=== PATIENT | male | born 1975 | race Two or more races ===

== ENCOUNTER 2025-02-22 14:49 | Emergency (ER) | payer MEDICAID, OTHER ==
[~2025-02-22] VITALS: Ht 180.3 cm; Wt 115.8 kg
--- NOTE | 2025-02-22 16:19 | ED.PDOC ---
History of Present Illness(SKN HPI Comments A 50 YEAR OLD MALE PRESENTS TO THE ED WITH COMPLAINT OF RASH. PATIENT STATES HE HAS BEEN EXPERIENCING AN ITCHY RASH OFF AND ON FOR THE PAST 4 DAYS. THE PATIENT NOTES THAT HE TAKES 5 DIFFERENT MEDICATIONS, BUT IS NOT SURE IF THIS IS WHAT MAY BE CAUSING HIS SYMPTOMS. PATIENT DENIES FEVER, CHILLS, SHORTNESS OF BREATH, CHEST PAIN, ABDOMINAL PAIN, NAUSEA, VOMITING, HEADACHE, OR OTHER COMPLAINTS. NO OTHER SYMPTOMS OR MODIFYING FACTORS AT THIS TIME. PATIENT IS ALERT, ORIENTED X 4, AND HAS STEADY GAIT. Chief Complaint: Rash Time Seen by MD: 14:55 History of Present Illness: Nurses Notes, Medications, Allergies Allergies: Coded Allergies: NO KNOWN ALLERGIES (Unverified , 02/22/25) Home Meds Active Scripts Prednisone (Prednisone) 20 Mg Tab, 60 MG PO DAILY, #24 TAB Prov:FATUMA ANDRE 02/22/25 Hydroxyzine Hcl (Hydroxyzine Hcl) 50 Mg Tab, 1 TAB PO TID, #30 TAB Prov:FATUMA ANDRE 02/22/25 Information Source: Patient Mode of Arrival: Ambulatory Severity: Moderate Timing: Days Duration: Since onset, Days Prehospital treatment: None Location: Generalized Mechanism: Spontaneous Onset Developed: Pruritus, Rash Occurence: Indoors Object: None Condition of Object: None Wound Type: None Immunization Status of Animal: NA Tetanus: Unknown History of: None Associated Signs and Symptoms: Redness Past Medical History PAST MEDICAL HISTORY: GERD Surgical History: Denies all surgeries Family History Family History: Reviewed,noncontributory to illness Social History Smoker: Non-Smoker Alcohol: Denies ETOH Use Drugs: Denies Drug Use Lives In: Home Constitutional: denies: chills, diaphoresis, fatigue, fever, malaise, sweats, weakness, others EENTM: denies: blurred vision, double vision, ear bleeding, ear discharge, ear drainage, ear pain, ear ringing, eye pain, eye redness, hearing loss, mouth pain, mouth swelling, nasal discharge, nose bleeding, nose congestion, nose pain, photophobia, tearing, throat pain, throat swelling, voice changes, others Respiratory: denies: cough, hemoptysis, orthopnea, SOB at rest, shortness of breath, SOB with excertion, stridor, wheezing, others Cardiovascular: denies: chest pain, dizzy spells, diaphoresis, Dyspnea on exertion, edema, irregular heart beat, left arm pain, lightheadedness, palpitations, PND, syncope, others Gastrointestinal: denies: abdomen distended, abdominal pain, blood streaked bowels, constipated, diarrhea, dysphagia, difficulty swallowing, hematemesis, melena, nausea, poor appetite, poor fluid intake, rectal bleeding, rectal pain, vomiting, others Genitourinary: denies: burning, dysuria, flank pain, frequency, hematuria, incontinence, penile discharge, penile sore, pain, testicle pain, testicle s welling, urgency, others Neurological: denies: dizziness, fainting, headache, left sided numbness, left sided weakness, numbness, paresthesia, pre-existing deficit, right sided numbness, right sided weakness, seizure, speech problems, tingling, tremors, weakness, others Musculoskeletal: denies: back pain, gout, joint pain, joint swelling, muscle pain, muscle stiffness, neck pain, others Integumetry: reports: rash (GENERALIZED RASH WITH ITCHING); denies: bruises, change in color, change in hair/nails, dryness, laceration, lesions, lumps, wounds, others Allergic/Immunocompromised: reports: Hives, Itching; denies: Difficulty Healing, Frequent Infections, others Hematologic/Lymphatic: denies: anemia, blood clots, easy bleeding, easy bruising, swollen glands, others Endocrine: denies: excessive hunger, excessive sweating, excessive thirst, excessive urination, flushing, intolerance to cold, intolerance to heat, unexplained weight gain, unexplained weight loss, others Psychiatric: denies: anxiety, bipolar disorder, depression, hopeless, panic disorder, schizophrenia, sleepless, suicidal, others All Other Systems: Reviewed and Negative Physical Exam General Appearance: No Apparent Distress, Obese HEENT: Normal ENT Inspection, PERRL/EOMI, Pharynx Normal, TMs Normal Neck: Full Range of Motion, Non-Tender, Normal, Normal Inspection Respiratory: Chest Non-Tender, Lungs Clear, No Accessory Muscle Use, No Respiratory Distress, Normal Breath Sounds Cardiovascular: No Edema, No JVD, No Murmur, No Gallop, Normal Peripheral Pulses, Regular Rate/Rhythm Breast Exam: Deferred Gastrointestinal: No Organomegaly, Non Tender, No Pulsatile Mass, Normal Bowel Sounds, Soft Genitalia: Deferred Pelvic: Deferred Rectal: Deferred Extremities: No calf tenderness, Normal capillary refill, Normal inspection, Normal range of motion, Non-tender, No pedal edema Musculoskeletal : Apperance: Normal Neurologic: Alert, shoe cobbler II-XII nml as Tested, No Motor Deficits, Normal Affect, Normal Mood, No Sensory Deficits Cerebellar Function: Normal Reflexes: Normal Skin: Dry, Rash (MILD ERYTHEMA SANDS SKIN RASH ON UPPER BACK, LOWER BACK, ARMS AND THIGHS, NO TENDERNESS, SWELLING AND DEFORMITY. ), Warm Peripheral Pulses: 2+ carotid (R), 2+ carotid (L) Lymphatic: No Adenopathy Was a procedure done? Was a procedure done?: No Differential Diagnosis (INTG) Differential Diagnosis: N/A Differential Diagnosis: Atopic dermatitis, Contact Dermatitis, Scabies, Tinea, Urticaria Differential Diagnosis: N/A Abscess: N/A Differential Diagnosis: N/A X-Ray, Labs, Meds, VS Vital Signs Date Time Temp Pulse Resp B/P (MAP) Pulse Ox O2 Delivery O2 Flow Rate FiO2 02/22/25 16:27 88 19 98 Room Air 02/22/25 16:27 98.4 88 19 132/87 (102) 98 98.4 02/22/25 14:51 98.4 88 19 132/87 98 98.4 X-Ray, Labs, Meds, VS Comment EXTERNAL MEDICAL RECORDS REVIEWED: [NONE] INDEPENDENT HISTORIANS: [NONE] SOCIAL DETERMINANTS OF HEALTH: [NONE] LABS ORDERED: NONE REVIEWED AND INTERPRETED RESULTS: NONE IMAGING ORDERED: NONE TREATMENTS ORDERED: NONE PROCEDURES PERFORMED: NONE CRITICAL CARE TIME: NONE I HAVE DISCUSSED THE PATIENT WITH THE ATTENDING PHYSICIAN DR. GUDINO AND HE AGREES WITH THE PATIENT'S PLAN OF CARE AND DISPOSITION. BASED ON HISTORY OF PRESENT ILLNESS, AND PHYSICAL EXAM, PATIENT WILL BE DISCHARGED HOME. DISCUSSED PLAN FOR DISCHARGE HOME WITH RX [PREDNISONE AND VISTARIL 50 MG]. MEDICATION WARNINGS GIVEN. SHARED DECISION MAKING: PATIENT INSTRUCTED TO FOLLOW UP WITH PRIMARY CARE PROVIDER IN 1-2 DAYS FOR RE-EVALUATION OF SYMPTOMS. PATIENT VERBALIZES UNDERSTANDING TO RETURN TO ED FOR NEW OR WORSENING SYMPTOMS OR IF FOLLOW UP WITH PCP CANNOT BE OBTAINED. PATIENT FEELS COMFORTABLE GOING HOME AT THIS TIME. ALL QUESTIONS ADDRESSED AT TIME OF DISCHARGE. Time of 1ST Reevaluation: 16:31 Reevaluation 1ST: Improved Patient Education/Counseling: Diagnosis, Treatment, Need For Follow Up Family Education/Counseling: Diagnosis, Treatment, Need For Follow Up Medical Screening: No EMC Exist At This Time SEPSIS Sepsis Screen Date sepsis recognized/suspect: Feb 22, 2025 Time Sepsis recognized/suspect: 1453 Recent Procedure: No On Antibiotic Therapy: No Respiratory Rate >20: No Heart Rate >90: No Temp<36 C (96.8 F) or >38.3 C: No SBP <90 or MAP <65 mmHG: No New Acute Mental Status Change: No Is the patient on CPAP, BIPAP,: No Vital Signs Date Time Temp Pulse Resp B/P (MAP) Pulse Ox O2 Delivery O2 Flow Rate FiO2 02/22/25 16:27 88 19 98 Room Air 02/22/25 16:27 98.4 88 19 132/87 (102) 98 98.4 02/22/25 14:51 98.4 88 19 132/87 98 98.4 Departure 1 Departure Time of Disposition: 16:31 Impression: Primary Impression: Allergic reaction Qualified Codes: T78.40XA - Allergy, unspecified, initial encounter Disposition: HOME / SELF CARE / HOMELESS Condition: Stable Additional Instructions: FOLLOW-UP WITH PCP IN 1 TO 2 DAYS. TAKE MEDICATIONS PRESCRIBED. RETURN TO ED FOR ANY NEW OR WORSENING SYMPTOMS. e-Prescriptions Prednisone (Prednisone) 20 Mg Tab 60 MG PO DAILY, #24 TAB Prov: FATUMA ANDRE 02/22/25 Hydroxyzine Hcl (Hydroxyzine Hcl) 50 Mg Tab 1 TAB PO TID, #30 TAB Prov: FATUMA ANDRE 02/22/25 Discharged With: Self Critical Care Note Critical Care Time?: No Stability Stability form required: No I personally scribed for FATUMA ANDRE ([email or web address]) on 02/22/25 at 16:19. Electronically submitted by Tom Angelo ([email or web address]). I personally scribed for FATUMA ANDRE ([email or web address]) on 02/22/25 at 16:23. Electronically submitted by Tom Angelo ([email or web address]). FATUMA ANDRE Feb 22, 2025 16:19
[2025-02-22] MEDS ORDERED: PRED20TA2 PO (16:26)
[2025-02-22] MEDS ORDERED: HYDR50TA69 PO (16:26)
[2025-02-22 16:27] VITALS: BP 132/87; PULSE 88; RESP 19; TEMP 98.4; O2SAT 98
== END 2025-02-22 16:28 | disposition home or self-care (01) ==
LOC: ER 14:49
DX: T78.19XA Other adverse food reactions, not elsewhere classified, initial encounter (principal); Z79.52 Long term (current) use of systemic steroids; K21.9 Gastro-esophageal reflux disease without esophagitis; X58.XXXA Exposure to other specified factors, initial encounter
CPT/HCPCS: 82947; 82962

== ENCOUNTER 2025-02-27 10:06 | Inpatient (IN) | payer MEDICAID ==
[~2025-02-27] VITALS: Ht 180.3 cm; Wt 115.5 kg
[~2025-02-27 10:06] MED LIST: HYDR50TA69 PO; PRED20TA2 PO
--- NOTE | 2025-02-27 10:31 | ED.PDOC ---
GI ASSESSMENT HPI Comments 50 year old male presents to the ED with a chief complaint of abdominal pain onset 2 weeks. Patient states he has been experiencing abdominal pain, RUQ, for the past 2 weeks rates pain 5/10. Patient does not have PCP, went to [facility], was advised to come to ED due to complaints. For the past 2 weeks he has also been experiencing abdominal distension, jaundice, generalized itchiness, nausea. Denies fever, chills, vomiting, diarrhea, hematemesis, dysuria, hematuria, blood in stool, melena, headache. No other symptoms or modifying factors present at this time. Chief Complaint: Abdominal Pain Time Seen by MD: 10:25 Reviewed Notes: Nurses Notes, Medications, Allergies Allergies: Coded Allergies: NO KNOWN ALLERGIES (Unverified , 02/22/25) Home Meds Active Scripts Prednisone (Prednisone) 20 Mg Tab, 60 MG PO DAILY, #24 TAB Prov:FATUMA ANDRE 02/22/25 Hydroxyzine Hcl (Hydroxyzine Hcl) 50 Mg Tab, 1 TAB PO TID, #30 TAB Prov:FATUMA ANDRE 02/22/25 Information Source: Patient Mode of Arrival: Ambulatory Timing: Weeks Duration: Since onset Prehospital treatment: None Quality: Sharp Vomitus: None Severity: Moderate Recent: None Recent Hx of: None Pain Location: RUQ Modifying Factors: Nothing Associated sign and symptoms: Nausea, Abdominal Pain Past Medical History PAST MEDICAL HISTORY: GERD Surgical History: Denies all surgeries Family History Family History: Reviewed,noncontributory to illness Social History Smoker: Non-Smoker Alcohol: Denies ETOH Use Drugs: Denies Drug Use Lives In: Home Constitutional: denies: chills, diaphoresis, fatigue, fever, malaise, sweats, weakness, others EENTM: denies: blurred vision, double vision, ear bleeding, ear discharge, ear drainage, ear pain, ear ringing, eye pain, eye redness, hearing loss, mouth pain, mouth swelling, nasal discharge, nose bleeding, nose congestion, nose pain, photophobia, tearing, throat pain, throat swelling, voice changes, others Respiratory: denies: cough, hemoptysis, orthopnea, SOB at rest, shortness of breath, SOB with excertion, stridor, wheezing, others Cardiovascular: denies: chest pain, dizzy spells, diaphoresis, Dyspnea on exertion, edema, irregular heart beat, left arm pain, lightheadedness, palpitations, PND, syncope, others Gastrointestinal: reports: abdomen distended, abdominal pain, nausea; denies: blood streaked bowels, constipated, diarrhea, dysphagia, difficulty swallowing, hematemesis, melena, poor appetite, poor fluid intake, rectal bleeding, rectal pain, vomiting, others Genitourinary: denies: burning, dysuria, flank pain, frequency, hematuria, incontinence, penile discharge, penile sore, pain, testicle pain, testicle swelling, urgency, others Neurological: denies: dizziness, fainting, headache, left sided numbness, left sided weakness, numbness, paresthesia, pre-existing deficit, right sided numbness, right sided weakness, seizure, speech problems, tingling, tremors, weakness, others Musculoskeletal: denies: back pain, gout, joint pain, joint swelling, muscle pain, muscle stiffness, neck pain, others Integumetry: reports: change in color (jaundice), others (itchiness); denies: bruises, change in hair/nails, dryness, laceration, lesions, lumps, rash, wounds Allergic/Immunocompromised: denies: Difficulty Healing, Frequent Infections, Hives, Itching, others Hematologic/Lymphatic: denies: anemia, blood clots, easy bleeding, easy bruising, swollen glands, others Endocrine: denies: excessive hunger, excessive sweating, excessive thirst, excessive urination, flushing, intolerance to cold, intolerance to heat, unexplained weight gain, unexplained weight loss, others Psychiatric: denies: anxiety, bipolar disorder, depression, hopeless, panic disorder, schizophrenia, sleepless, suicidal, others All Other Systems: Reviewed and Negative Physical Exam General Appearance: Moderate Distress HEENT: Pharynx Normal, Scleral Icterus (L), Scleral Icterus (R), TMs Normal Neck: Full Range of Motion, Non-Tender, Normal, Normal Inspection Respiratory: Chest Non-Tender, Lungs Clear, No Accessory Muscle Use, No Respiratory Distress, Normal Breath Sounds Cardiovascular: No Edema, No JVD, No Murmur, No Gallop, Normal Peripheral Pulses, Regular Rate/Rhythm Breast Exam: Deferred Gastrointestinal: Diffuse, No Organomegaly, No Pulsatile Mass, Normal Bowel Sounds, Soft, Tenderness Genitalia: Deferred Pelvic: Deferred Rectal: Deferred Extremities: No calf tenderness, Normal capillary refill, Normal inspection, Normal range of motion, Non-tender, No pedal edema Musculoskeletal : Apperance: Normal Neurologic: Alert, scientific aide II-XII nml as Tested, No Motor Deficits, Normal Affect, Normal Mood, No Sensory Deficits Cerebellar Function: Normal Reflexes: Normal Skin: Dry, Jaundice, Normal Color, Warm Lymphatic: No Adenopathy Was a procedure done? Was a procedure done?: No GI differential Dx Differential Diagnosis: Gastritis/PUD, Gastroenteritis, Inflammatory BD, Pancreatitis, UTI, Electrolyte Imbalance, Food Poisoning X-Ray, Labs, Meds, VS Vital Signs Date Time Temp Pulse Resp B/P (MAP) Pulse Ox O2 Delivery O2 Flow Rate FiO2 02/27/25 12:34 97.7 73 16 131/91 (104) 98 97.7 02/27/25 10:08 98.1 76 16 135/91 100 98.1 Lab Test 02/27/25 10:59 Range/Units White Blood Count 9.1 4.4-10.8 10^3/uL Red Blood Count 5.40 4.5-5.90 10^6/uL Hemoglobin 16.2 13.5-17.5 g/dL Hematocrit 48.0 41.0-53.0 % Mean Corpuscular Volume 88.9 80.0-100.0 fL Mean Corpuscular Hemoglobin 30.0 28.0-32.0 pg Mean Corpuscular Hemoglobin Concent 33.8 32.0-36.0 g/dL Red Cell Distribution Width 14.1 11.8-14.3 % Platelet Count 225 140-450 10^3/uL Mean Platelet Volume 9.4 6.9-10.8 fL Neutrophils (%) (Auto) 68.9 37.0-80.0 % Lymphocytes (%) (Auto) 18.3 10.0-50.0 % Monocytes (%) (Auto) 7.1 0.0-12.0 % Eosinophils (%) (Auto) 5.0 0.0-7.0 % Basophils (%) (Auto) 0.7 0.0-2.0 % Neutrophils # (Auto) 6.3 1.6-8.6 10 ^3/uL Lymphocytes # (Auto) 1.7 0.4-5.4 10 ^3/uL Monocytes # (Auto) 0.6 0-1.3 10 ^3/uL Eosinophils # (Auto) 0.5 0-0.8 10 ^3/uL Basophils # (Auto) 0.1 0-0.2 10 ^3/uL Nucleated Red Blood Cells 0.1 % Prothrombin Time 10.6 9.3-11.8 sec Prothrombin Time INR 1.00 0.9-1.15 Activated Partial Thromboplast Time 27.9 24.5-34.5 SEC Sodium Level 137 136-145 mmol/L Potassium Level 3.9 3.5-5.1 mmol/L Chloride Level 100 98-107 mmol/L Carbon Dioxide Level 26 20-31 mmol/L Anion Gap 11 5-15 Blood Urea Nitrogen 11 9-23 mg/dL Creatinine 1.02 0.700-1.30 mg/dL Glomerular Filtration Rate Calc 90 >90 mL/min BUN/Creatinine Ratio 10.8 10.0-20.0 Serum Glucose 116 H 74-106 mg/dL Calcium Level 10.1 8.7-10.4 mg/dL Total Bilirubin 11.7 H 0.2-1.0 mg/dL Aspartate Amino Transferase (AST) 57 H 13-40 U/L Alanine Aminotransferase (ALT) 217 H 7-40 U/L Alkaline Phosphatase 241 H 46-116 U/L Total Protein 8.0 5.7-8.2 g/dL Albumin 4.9 H 3.2-4.8 g/dL Lipase 45 12-53 U/L IMPRESSION: Very minimal inflammatory changes surrounding a few diverticula at the ascending colon. Please correlate with any right-sided abdominal symptoms to exclude a mild acute right-sided diverticulitis. Otherwise no acute abnormality. Radiation optimization: All CT scans at this facility use at least one of these dose optimization techniques: automated exposure control mA and/or kV adjustment per patient size (includes targeted exams where dose is matched to clinical indication) or iterative reconstruction. The patient's CBC and chemistry panel are within normal limits The liver enzymes are all elevated. The total bilirubin is 11.7 The patient is being admitted at this time Images Reviewed?: Images reviewed and evaluated by me Time of 1ST Reevaluation: 10:55 Reevaluation 1ST: Unchanged Patient Education/Counseling: Diagnosis, Treatment, Prognosis Family Education/Counseling: No Family Present SEPSIS Sepsis Screen Date sepsis recognized/suspect: Feb 27, 2025 Time Sepsis recognized/suspect: 1012 Recent Procedure: No (TN) On Antibiotic Therapy: No Respiratory Rate >20: No Heart Rate >90: No Temp<36 C (96.8 F) or >38.3 C: No SBP <90 or MAP <65 mmHG: No New Acute Mental Status Change: No Is the patient on CPAP, BIPAP,: No Physician Orders Ct Ab Pel Wo Con-No Oral Or Iv (02/27/25 10:28) Heplock Iv (02/27/25 10:28) Vital Signs Date Time Temp Pulse Resp B/P (MAP) Pulse Ox O2 Delivery O2 Flow Rate FiO2 02/27/25 12:34 97.7 73 16 131/91 (104) 98 97.7 02/27/25 10:08 98.1 76 16 135/91 100 98.1 Laboratory Tests Test 02/27/25 10:59 White Blood Count 9.1 10^3/uL (4.4-10.8) Departure 1 Departure Time of Disposition: 14:22 Impression: Primary Impression: Intractable abdominal pain Additional Impressions: Hyperbilirubinemia Jaundice Disposition: ADMITTED INPATIENT Admit to: Tele Condition: Fair Critical Care Note Critical Care Time?: No Stability Stability form required: Yes Unstable for transfer: ED Physician Assesment (Clinical assesment) Heart Score Heart Score: Heart Score Response (Comments) Value History N/A 0 EKG N/A 0 Age N/A 0 Risk Factors N/A 0 Troponin N/A 0 Total 0 I personally scribed for MADHAVI GUDINO MD ([email or web address]) on 02/27/25 at 10:31. Electronically submitted by Prisca Cordon ([email or web address]). I personally scribed for MADHAVI GUDINO MD ([email or web address]) on 02/27/25 at 12:24. Electronically submitted by Prisca Cordon ([email or web address]). MADHAVI GUDINO MD Feb 27, 2025 10:31
[2025-02-27 11:17] LABS: Hematocrit 48.0 % (41.0-53.0); Hemoglobin 16.2 g/dL (13.5-17.5); Mean Corpuscular Hemoglobin 30.0 pg (28.0-32.0); Mean Corpuscular Volume 88.9 fL (80.0-100.0); Nucleated Red Blood Cells % 0.1 %
[2025-02-27 11:32] LABS: Anion Gap 11 (5-15); Blood Urea Nitrogen 11 mg/dL (9-23); Calcium 10.1 mg/dL (8.7-10.4); Carbon Dioxide 26 mmol/L (20-31); Chloride 100 mmol/L (98-107); INR 1.0 (0.9-1.15); Lipase 45 U/L (12-53); Partial Thromboplastin Time 27.9 SEC (24.5-34.5); Potassium 3.9 mmol/L (3.5-5.1); Prothrombin Time 10.6 sec (9.3-11.8); Sodium 137 mmol/L (136-145)
[2025-02-27 11:33] LABS: Alanine Aminotransferase 217 U/L (7-40); Albumin 4.9 g/dL (3.2-4.8); Alkaline Phosphatase 241 U/L (46-116); Bilirubin, Total 11.7 mg/dL (0.2-1.0); Glucose 116 mg/dL (74-106)
[2025-02-27 11:53] LABS: BUN/Creatinine Ratio 10.8 (10.0-20.0)
[2025-02-27 11:54] LABS: Total Protein 8.0 g/dL (5.7-8.2)
--- NOTE | 2025-02-27 11:58 | DVH ---
Exam: CT CT AB PEL WO CON-NO ORAL OR IV History: pain Comparison Study: None Technique: Multidetector spiral CT of the abdomen was performed from lung bases to pubic symphysis. Imaging was performed without IV contrast. Axial, coronal and sagittal multiplanar reformats were obtained from the axial data set by the technologist. Radiation Dose : 1. Abdomen/Pelvis: CTDIvol 20.04 mGy, DLP 1264.56 mGy*cm. Findings: Evaluation of solid organs is limited due to lack of intravenous contrast use. Lung Bases: No acute or significant lung base finding. Normal heart size. No pleural or pericardial effusion. Liver: Hepatic steatosis. Gallbladder and Biliary Tree: Unremarkable Spleen: Unremarkable Pancreas: The pancreas is grossly normal in appearance. Adrenal Glands: Unremarkable Kidneys: Kidneys are grossly normal without calculi or hydronephrosis. Bladder: Grossly unremarkable for degree of distention. Bowel: Appendix is normal. Very minimal inflammatory changes surrounding a few diverticula at the ascending colon. GI tract otherwise unremarkable. Ascites: Absent Lymphadenopathy: No mesenteric, retroperitoneal or periportal lymphadenopathy. Abdominal Wall and Mesentery: Unremarkable. Vasculature: The visualized abdominal aorta is normal in size and caliber. Evaluation of abdominal and pelvic vessels is limited due to lack of intravenous contrast. Pelvic Organs: Unremarkable Musculoskeletal: No aggressive focal bony lesions, acute fractures or dislocation. IMPRESSION: Very minimal inflammatory changes surrounding a few diverticula at the ascending colon. Please correlate with any right-sided abdominal symptoms to exclude a mild acute right-sided diverticulitis. Otherwise no acute abnormality. Radiation optimization: All CT scans at this facility use at least one of these dose optimization techniques: automated exposure control mA and/or kV adjustment per patient size (includes targeted exams where dose is matched to clinical indication) or iterative reconstruction.
[2025-02-27] MEDS ORDERED: HYDROcodone-ACET 5/325MG TAB PO PRN (16:15)
[2025-02-27] MEDS ORDERED: DOCUSATE SOD 100 MG CAP PO PRN (16:15)
[2025-02-27] MEDS ORDERED: ONDANSETRON HCL 4 MG/2 ML VIAL IV PRN (16:15)
[2025-02-27] MEDS ORDERED: ACETAMINOPHEN 325 MG TAB PO PRN (16:15)
--- NOTE | 2025-02-27 16:26 | DVHHP2 ---
History of Present Illness Reason for Visit: Abdominal pain History of Present Illness Darion Silva is a 50-year-old male with no significant past medical history who came to the hospital for abdominal pain. Patient states his symptoms began last 02/22/2025. He noticed that he was becoming yellow, nauseated, and itchy with a rash. He did come to the hospital and discharged home the same day. Wednesday02/24/2025 he noticed that his stool was becoming yellow and white. He also started having RUQ pain and bloating. He went to urgent care today due to his symptoms worsening and was told to come to the hospital. Past Surgical History: None Smoke: Quit (2 weeks ago) ALCOHOL: occassional Drugs: None Lives: with Family Domestic Violence: Neg Review of Systems Constitutional: Yes: Other (Jaundice); No: Fever, Chills, Sweats, Weakness, Malaise Eyes: No: Pain, Vision change, Conjunctivae inflammation, Eyelid inflammation, Other, Redness ENT: No: Ear pain, Ear discharge, Nose pain, Nose discharge, Nose congestion, Mouth pain, Mouth swelling, Throat pain, Throat swelling, Other Respiratory: No: Cough, Dry, Shortness of breath, SOB with excertion, Wheezing, Hemoptysis, Pleuritic Pain, Sputum, Wheezing, Other Cardiovascular: No: Chest Pain, Palpitations, Orthopnea, Paroxysmal Noc. Dyspnea, Edema, Lt Headedness, Other Gastrointestinal: Nausea, Abdominal Pain (RUQ pain, bloating), Diarrhea; No: Vomiting, Constipation, Melena, Hematochezia, Other Genitourinary: No Dysuria, No Frequency, No Incontinence, No Hematuria, No Retention, No Other Musculoskeletal: No: other, neck pain, shoulder pain, arm pain, back pain, hand pain, leg pain, foot pain Skin: No: Rash, Lesions, Jaundice, Bruising, Other Neurological: No: Weakness, Numbness, Incoordination, Change in speech, Confusion, Seizures, Other Allergies: Coded Allergies: NO KNOWN ALLERGIES (Unverified , 02/22/25) Medications Current Medications Medications Dose Ordered Sig/William Route Start Time Stop Time Status Last Admin Dose Admin Acetaminophen/ Hydrocodone Bitart 1 tab Q4HP PRN PO 02/27/25 16:15 UNV Ondansetron HCl 4 mg Q4HP PRN IV 02/27/25 16:15 UNV Docusate Sodium 100 mg BIDPRN PRN PO 02/27/25 16:15 UNV Acetaminophen 650 mg Q6HP PRN PO 02/27/25 16:15 UNV Exam Vital Signs Vital Signs Date Time Temp Pulse Resp B/P (MAP) Pulse Ox O2 Delivery O2 Flow Rate FiO2 02/27/25 12:34 97.7 73 16 131/91 (104) 98 97.7 General Appearance: Alert, Oriented X3, Cooperative, mild distress HEENT: Atraumatic, PERRLA, Mucous membr. moist/pink Respiratory: Clear to auscultation, Normal air movement Cardiovascular: Regular rate, Normal S1, Normal S2, No murmurs Abdominal: Normal bowel sounds, Other (firm, distended, RUQ tenderness) Extremities: No clubbing, No cyanosis, No edema, Normal pulses, No tenderness/swelling Skin: No rashes, No breakdown, No significant lesion Neuro: Normal gait, Normal speech, Strength at 5/5 X4 ext Psych/Mental Status: Mental status NL, Mood NL Labs/Xrays Labs Test 02/27/25 10:59 Range/Units White Blood Count 9.1 4.4-10.8 10^3/uL Red Blood Count 5.40 4.5-5.90 10^6/uL Hemoglobin 16.2 13.5-17.5 g/dL Hematocrit 48.0 41.0-53.0 % Mean Corpuscular Volume 88.9 80.0-100.0 fL Mean Corpuscular Hemoglobin 30.0 28.0-32.0 pg Mean Corpuscular Hemoglobin Concent 33.8 32.0-36.0 g/dL Red Cell Distribution Width 14.1 11.8-14.3 % Platelet Count 225 140-450 10^3/uL Mean Platelet Volume 9.4 6.9-10.8 fL Neutrophils (%) (Auto) 68.9 37.0-80.0 % Lymphocytes (%) (Auto) 18.3 10.0-50.0 % Monocytes (%) (Auto) 7.1 0.0-12.0 % Eosinophils (%) (Auto) 5.0 0.0-7.0 % Basophils (%) (Auto) 0.7 0.0-2.0 % Neutrophils # (Auto) 6.3 1.6-8.6 10 ^3/uL Lymphocytes # (Auto) 1.7 0.4-5.4 10 ^3/uL Monocytes # (Auto) 0.6 0-1.3 10 ^3/uL Eosinophils # (Auto) 0.5 0-0.8 10 ^3/uL Basophils # (Auto) 0.1 0-0.2 10 ^3/uL Nucleated Red Blood Cells 0.1 % Prothrombin Time 10.6 9.3-11.8 sec Prothrombin Time INR 1.00 0.9-1.15 Activated Partial Thromboplast Time 27.9 24.5-34.5 SEC Sodium Level 137 136-145 mmol/L Potassium Level 3.9 3.5-5.1 mmol/L Chloride Level 100 98-107 mmol/L Carbon Dioxide Level 26 20-31 mmol/L Anion Gap 11 5-15 Blood Urea Nitrogen 11 9-23 mg/dL Creatinine 1.02 0.700-1.30 mg/dL Glomerular Filtration Rate Calc 90 >90 mL/min BUN/Creatinine Ratio 10.8 10.0-20.0 Serum Glucose 116 H 74-106 mg/dL Calcium Level 10.1 8.7-10.4 mg/dL Total Bilirubin 11.7 H 0.2-1.0 mg/dL Aspartate Amino Transferase (AST) 57 H 13-40 U/L Alanine Aminotransferase (ALT) 217 H 7-40 U/L Alkaline Phosphatase 241 H 46-116 U/L Total Protein 8.0 5.7-8.2 g/dL Albumin 4.9 H 3.2-4.8 g/dL Lipase 45 12-53 U/L Exam: CT CT AB PEL WO CON-NO ORAL OR IV Findings: Evaluation of solid organs is limited due to lack of intravenous contrast use. Lung Bases: No acute or significant lung base finding. Normal heart size. No pleural or pericardial effusion. Liver: Hepatic steatosis. Gallbladder and Biliary Tree: Unremarkable Spleen: Unremarkable Pancreas: The pancreas is grossly normal in appearance. Adrenal Glands: Unremarkable Kidneys: Kidneys are grossly normal without calculi or hydronephrosis. Bladder: Grossly unremarkable for degree of distention. Bowel: Appendix is normal. Very minimal inflammatory changes surrounding a few diverticula at the ascending colon. GI tract otherwise unremarkable. Ascites: Absent Lymphadenopathy: No mesenteric, retroperitoneal or periportal lymphadenopathy. Abdominal Wall and Mesentery: Unremarkable. Vasculature: The visualized abdominal aorta is normal in size and caliber. Evaluation of abdominal and pelvic vessels is limited due to lack of intravenous contrast. Pelvic Organs: Unremarkable Musculoskeletal: No aggressive focal bony lesions, acute fractures or dislocation. IMPRESSION: Very minimal inflammatory changes surrounding a few diverticula at the ascending colon. Please correlate with any right-sided abdominal symptoms to exclude a mild acute right-sided diverticulitis. Otherwise no acute abnormality. SEPSIS Sepsis Screen Date sepsis recognized/suspect: Feb 27, 2025 Time Sepsis recognized/suspect: 1011 Recent Procedure: No (TN) On Antibiotic Therapy: No Respiratory Rate >20: No Heart Rate >90: No Temp<36 C (96.8 F) or >38.3 C: No SBP <90 or MAP <65 mmHG: No New Acute Mental Status Change: No Is the patient on CPAP, BIPAP,: No Physician Orders Ct Ab Pel Wo Con-No Oral Or Iv (02/27/25 10:28) Heplock Iv (02/27/25 10:28) LIVER (02/27/25 16:00) Admit (02/27/25 16:04) Code Status (02/27/25 16:04) Hydrocodone-Acet 5/325mg Tab (Almond 5/32 (02/27/25 16:15) Ondansetron Hcl (Zofran) (02/27/25 16:15) Docusate Sodium Capsule (Colace Capsule) (02/27/25 16:15) Complete Blood Count (02/28/25 04:00) Comprehensive Metabolic Panel (02/28/25 04:00) Condition: Serious (02/27/25 16:04) Acetaminophen Tablet (Tylenol Tablet) (02/27/25 16:15) Regular Diet (02/27/25 Dinner) Vital Signs Date Time Temp Pulse Resp B/P (MAP) Pulse Ox O2 Delivery O2 Flow Rate FiO2 02/27/25 12:34 97.7 73 16 131/91 (104) 98 97.7 02/27/25 10:08 98.1 76 16 135/91 100 98.1 Laboratory Tests Test 02/27/25 10:59 White Blood Count 9.1 10^3/uL (4.4-10.8) Assessment/Plan Assessment/Plan Assessment: Hyperbilirubinemia, Transaminitis, Possible diverticulitis, Plan: Admit to Med-Surg, GI consult, Liver ultrasound, MRCP, IV hydration, Plan discussed with: Patient, Spouse My Orders Orders - PREETHI SUE Procedure Category Date Status Time LIVER US 02/27/25 Logged 16:00 Admit ADMIT 02/27/25 Transmitted 16:04 Code Status CODE 02/27/25 Transmitted 16:04 Hydrocodone-Acet PHA 02/27/25 Logged 5/325mg Tab (Almond 16:15 Ondansetron Hcl PHA 02/27/25 Logged (Zofran) 16:15 Docusate Sodium PHA 02/27/25 Logged Capsule (Colace 16:15 Complete Blood Count LAB 02/28/25 Verified 04:00 Comprehensive LAB 02/28/25 Verified Metabolic Panel 04:00 Condition: Serious MAGNUS 02/27/25 In Process 16:04 Acetaminophen Tablet PHA 02/27/25 Logged (Tylenol Tablet) 16:15 Regular Diet DIET 02/27/25 Transmitted Dinner Date of Service: Feb 27, 2025 Billing Provider: PREETHI SUE Common Visit Codes: [id number] INP/OBS CARE (HIGH) PREETHI SUE Feb 27, 2025 16:26
--- NOTE | 2025-02-27 17:11 | DVH ---
Technique: Real-time ultrasound imaging of the abdomen was performed with grayscale and color Doppler. Indication: elevated T-dominga, jaundice Comparison: CT abdomen pelvis from today Findings: Liver measures 21 cm. It is increased in echogenicity and echotexture without focal mass. Portal vein is normal in caliber and demonstrates normal hepatopetal flow. Contracted gallbladder limiting evaluation. Gallbladder wall measures 4 mm. The common bile duct measures 4 mm. No intrahepatic biliary ductal dilatation. The right kidney measures 11.6 cm. There is no hydronephrosis or sonographic evidence of nephrolithiasis. The visualized portion of the pancreas is unremarkable. Impression: Echogenic liver which can be seen with hepatic steatosis, cirrhosis. Hepatomegaly Contracted gallbladder limiting evaluation. Gallbladder wall thickening to 4 mm. Consider obtaining MRCP to further characterize.
[2025-02-27 20:28] VITALS: BP 130/87; PULSE 82; RESP 20; TEMP 98.2; O2SAT 96
[2025-02-27 21:00] VITALS: BP 130/87; PULSE 82; RESP 20; TEMP 98.2; O2SAT 96
[2025-02-28 01:00] VITALS: BP 123/78; PULSE 84; RESP 19; TEMP 98.3; O2SAT 96
[2025-02-28 04:59] LABS: Hematocrit 45.7 % (41.0-53.0); Hemoglobin 15.7 g/dL (13.5-17.5); Mean Corpuscular Hemoglobin 30.4 pg (28.0-32.0); Mean Corpuscular Volume 88.3 fL (80.0-100.0); Nucleated Red Blood Cells % 0.2 %
[2025-02-28 05:00] VITALS: BP 128/85; PULSE 80; RESP 19; TEMP 97.9; O2SAT 96
[2025-02-28 05:17] LABS: Albumin 4.5 g/dL (3.2-4.8); Anion Gap 12 (5-15); Blood Urea Nitrogen 12 mg/dL (9-23); Calcium 9.7 mg/dL (8.7-10.4); Carbon Dioxide 24 mmol/L (20-31); Chloride 100 mmol/L (98-107); Potassium 3.9 mmol/L (3.5-5.1); Sodium 136 mmol/L (136-145)
[2025-02-28 05:18] LABS: BUN/Creatinine Ratio 12.6 (10.0-20.0)
[2025-02-28 05:25] LABS: Alanine Aminotransferase 172 U/L (7-40); Alkaline Phosphatase 229 U/L (46-116); Bilirubin, Total 10.6 mg/dL (0.2-1.0); Glucose 167 mg/dL (74-106); Total Protein 7.4 g/dL (5.7-8.2)
[2025-02-28 09:00] VITALS: BP 138/88; PULSE 74; RESP 18; TEMP 97.8; O2SAT 98
--- NOTE | 2025-02-28 12:37 | DVH ---
PROCEDURE: MRI MRCP MRI Indication: Hyperbilirubinemia, elevated liver enzymes COMPARISON: 02/27/2025 TECHNIQUE: Multiplanar multisequence images of the abdomen are obtianed per MRCP protocol. FINDINGS: Contracted gallbladder. No evidence for cholelithiasis. Normal caliber common bile duct measuring 3 mm. Pancreatic duct nondilated measuring 2 mm. Kidneys demonstrate no hydronephrosis. 6 mm left renal cysts. Spleen, pancreas unremarkable. Hepatic steatosis. Hepatomegaly. Stomach is partially distended. Small bowel loops that are imaged are normal in caliber. IMPRESSION: No evidence for cholelithiasis. Normal caliber common bile duct. Hepatic steatosis. Hepatomegaly.
[2025-02-28] MEDS: SODIUM CHLORIDE 0.9% 1,000 ML IV ONE (13:03)
--- NOTE | 2025-02-28 13:21 | DVHPN2 ---
Reviewed: Care Plan, H&P, Labs, Medications, Previous Orders, Radiology Changes from previous H/P or p: No Changes Eyes: No Pain, No Vision change, No Conjunctivae inflammation, No Eyelid inflammation, No Other, No Redness ENT: No Ear pain, No Ear discharge, No Nose pain, No Nose discharge, No Nose congestion, No Mouth pain, No Mouth swelling, No Throat pain, No Throat swelling, No Other Cardiovascular: No Chest Pain, No Palpitations, No Orthopnea, No Paroxysmal Noc. Dyspnea, No Edema, No Lt Headedness, No Other Respiratory: No Cough, No Dry, No Shortness of breath, No SOB with excertion, No Wheezing, No Hemoptysis, No Pleuritic Pain, No Sputum, No Other Gastrointestinal: Nausea; No Vomiting; Abdominal Pain (RUQ pain, bloating), D iarrhea; No Constipation, No Melena, No Hematochezia, No Other Genitourinary: No Dysuria, No Frequency, No Incontinence, No Hematuria, No Retention, No Other Musculoskeletal: No other, No neck pain, No shoulder pain, No arm pain, No back pain, No hand pain, No leg pain, No foot pain Skin: No Rash, No Lesions, No Jaundice, No Bruising, No Other Objective Vitals Vital Signs Date Time Temp Pulse Resp B/P (MAP) Pulse Ox O2 Delivery O2 Flow Rate FiO2 02/28/25 09:00 97.8 74 18 138/88 (105) 98 97.8 02/27/25 20:28 Room Air* 0 21 Medications Current Medications Medications Dose Ordered Sig/William Route Start Time Stop Time Status Last Admin Dose Admin Acetaminophen/ Hydrocodone Bitart 1 tab Q4HP PRN PO 02/27/25 16:15 Ondansetron HCl 4 mg Q4HP PRN IV 02/27/25 16:15 Docusate Sodium 100 mg BIDPRN PRN PO 02/27/25 16:15 Acetaminophen 650 mg Q6HP PRN PO 02/27/25 16:15 Laboratory Results Laboratory Tests 02/28/25 03:52 Chemistry Test 02/28/25 03:52 Albumin 4.5 g/dL (3.2-4.8) Calcium Level 9.7 mg/dL (8.7-10.4) Total Protein 7.4 g/dL (5.7-8.2) LFT Test 02/28/25 03:52 Alanine Aminotransferase (ALT) 172 U/L (7-40) H Alkaline Phosphatase 229 U/L (46-116) H Aspartate Amino Transferase (AST) 46 U/L (13-40) H Total Bilirubin 10.6 mg/dL (0.2-1.0) H Labs and/or images reviewed: Labs reviewed by me, Image(s) reviewed by me Assessment/Plan Assessment/Plan Acute abdominal pain Possible diverticulitis: Rocephin Flagyl Fatty liver Gallstones ruled out by negative MRCP Elevated liver enzymes: Consult for GI Dr. Shantanu Saldaña Time spent 45 minutes Plan discussed with: Patient Date of Service: Feb 28, 2025 Billing Provider: RACHANA FRIAS MD Common Visit Codes: [id number] INP/OBS CARE(HIGH) RACHANA FRIAS MD Feb 28, 2025 13:21
[2025-02-28 14:00] LABS: Hepatitis A Total Antibody Positive (Negative)
[2025-02-28 14:01] LABS: Hepatitis B Surface Antigen Negative (Negative); Hepatitis C Antibody Negative (Negative)
--- NOTE | 2025-02-28 15:52 | DVHCONRES ---
Date Seen: Feb 28, 2025 Resident Creating Document: RILEY BRUNNER RESIDENT History of Present Illness Darion Silva is a 50-year-old male with no significant past medical history who came to the hospital for abdominal pain. Patient states his symptoms began last 02/22/2025. He noticed that he was becoming yellow, nauseated, and itchy with a rash. He did come to the hospital and discharged home the same day. Wednesday02/24/2025 he noticed that his stool was becoming yellow and white. He also started having RUQ pain and bloating. He went to urgent care today due to his symptoms worsening and was told to come to the hospital. Past Surgical History: None Smoke: Quit (2 weeks ago) ALCOHOL: Tequila daily Patient seen and examined. Reports taking amoxicillin clavulanate from 02/11 till 02/19, for 7 days. Also reports drinking Tequila small amounts almost every day. Family History: FHx: pneumonia Allergies: Coded Allergies: NO KNOWN ALLERGIES (Unverified , 02/22/25) Home Meds Active Scripts Prednisone (Prednisone) 20 Mg Tab, 60 MG PO DAILY, #24 TAB Prov:FATUMA ANDRE 02/22/25 Hydroxyzine Hcl (Hydroxyzine Hcl) 50 Mg Tab, 1 TAB PO TID, #30 TAB Prov:FATUMA ANDRE 02/22/25 Current Medications Current Medications Medications (Trade) Dose Ordered Sig/William Route PRN Reason Start Time Stop Time Status Last Admin Acetaminophen/ Hydrocodone Bitart ([place] 5/325MG Tab) 1 tab Q4HP PRN PO MODERATE PAIN (4-6 PAIN SCALE) 02/27/25 16:15 Ondansetron HCl (Zofran) 4 mg Q4HP PRN IV NAUSEA / VOMITING 02/27/25 16:15 Docusate Sodium (Colace Capsule) 100 mg BIDPRN PRN PO FOR CONSTIPATION 02/27/25 16:15 Acetaminophen (Tylenol Tablet) 650 mg Q6HP PRN PO PAIN SCALE 1-3 OR TEMP>100.4 02/27/25 16:15 Ceftriaxone Sodium 50 ml @ 100 mls/hr DAILY@09 IV 03/01/25 09:00 Metronidazole 100 ml @ 100 mls/hr Q8HR IV 02/28/25 14:00 Vital Signs Vital Signs Date Time Temp Pulse Resp B/P (MAP) Pulse Ox O2 Delivery O2 Flow Rate FiO2 02/28/25 09:00 97.8 74 18 138/88 (105) 98 97.8 02/27/25 20:28 Room Air* 0 21 Physical Exam Patient lying in bed, in no acute distress General: Obese, afebrile, palor, scleral icterus, mucosae are moist Cardiovascular: Regular S1 and S2. No murmurs, gallops or rubs. No JVD elevation. No pedal edema Respiratory: Normal B/L air entry on room air. Clear lung sounds on auscultation Abdomen: Soft, nontender, nondistended, normoactive bowel sounds, no rebound tenderness, no organomegaly, no masses Genitourinary: Deferred MSK/skin: Mobilizes 4 limbs. Skin is dry and warm Neurological: No motor, no sensitive deficits, normal speech. Pupils are isocoric and reactive. Psych/Mental Status: A/Ox3 Labs/Diagnostic Data Labs Test 02/28/25 13:47 02/28/25 03:52 02/27/25 10:59 Range/Units Plasma/Serum Blood Alcohol < 3.0 <10 mg/dL White Blood Count 9.1 4.4-10.8 10^3/uL Red Blood Count 5.18 4.5-5.90 10^6/uL Hemoglobin 15.7 13.5-17.5 g/dL Hematocrit 45.7 41.0-53.0 % Mean Corpuscular Volume 88.3 80.0-100.0 fL Mean Corpuscular Hemoglobin 30.4 28.0-32.0 pg Mean Corpuscular Hemoglobin Concent 34.4 32.0-36.0 g/dL Red Cell Distribution Width 14.2 11.8-14.3 % Platelet Count 218 140-450 10^3/uL Mean Platelet Volume 9.8 6.9-10.8 fL Neutrophils (%) (Auto) 73.3 37.0-80.0 % Lymphocytes (%) (Auto) 13.2 10.0-50.0 % Monocytes (%) (Auto) 7.5 0.0-12.0 % Eosinophils (%) (Auto) 5.2 0.0-7.0 % Basophils (%) (Auto) 0.8 0.0-2.0 % Neutrophils # (Auto) 6.7 1.6-8.6 10 ^3/uL Lymphocytes # (Auto) 1.2 0.4-5.4 10 ^3/uL Monocytes # (Auto) 0.7 0-1.3 10 ^3/uL Eosinophils # (Auto) 0.5 0-0.8 10 ^3/uL Basophils # (Auto) 0.1 0-0.2 10 ^3/uL Nucleated Red Blood Cells 0.2 % Sodium Level 136 136-145 mmol/L Potassium Level 3.9 3.5-5.1 mmol/L Chloride Level 100 98-107 mmol/L Carbon Dioxide Level 24 20-31 mmol/L Anion Gap 12 5-15 Blood Urea Nitrogen 12 9-23 mg/dL Creatinine 0.95 0.700-1.30 mg/dL Glomerular Filtration Rate Calc 98 >90 mL/min BUN/Creatinine Ratio 12.6 10.0-20.0 Serum Glucose 167 H 74-106 mg/dL Calcium Level 9.7 8.7-10.4 mg/dL Total Bilirubin 10.6 H 0.2-1.0 mg/dL Aspartate Amino Transferase (AST) 46 H 13-40 U/L Alanine Aminotransferase (ALT) 172 H 7-40 U/L Alkaline Phosphatase 229 H 46-116 U/L Total Protein 7.4 5.7-8.2 g/dL Albumin 4.5 3.2-4.8 g/dL Hepatitis A IgM Antibody Negative Hepatitis A Antibody Total Positive H Negative Hepatitis B Surface Antigen Negative Negative Hepatitis B Surface Antibody Negative Negative Hepatitis B Core Total Antibody Negative Negative Hepatitis B Core IgM Antibody Negative Negative Hepatitis C Antibody Negative Negative Prothrombin Time 10.6 9.3-11.8 sec Prothrombin Time INR 1.00 0.9-1.15 Activated Partial Thromboplast Time 27.9 24.5-34.5 SEC Lipase 45 12-53 U/L Assessment Cholestatic jaundice likely mixed from amoxicillin clavulanate and alcoholism Chronic alcoholism Transaminitis secondary to above Risk of alcohol withdrawal Hepatic steatosis Morbid obesity MRCP shows no evidence of cholelithiasis. Normal CBD. Hepatic steatosis CT abdomen shows Very minimal inflammatory changes surrounding a few diverticula at the ascending colon. Please correlate with any right-sided abdominal symptoms to exclude a mild acute right-sided diverticulitis. Plan: Dr. Saldaña: LFTs trending down. Discontinue amoxicillin/clavulanate. Avoid drinking. Continue ursodiol 300 mg p.o. b.i.d. daily and then 7 days on discharge. Hepatitis panel negative. Avoid Tylenol, NSAIDs Follow up with GI as outpatient within the next 2-4 weeks for elective EGD Plan discussed with patient in which all questions were answered Case discussed with Dr. Saldaña Plan discussed with: Patient RILEY BRUNNER RESIDENT Feb 28, 2025 15:52
[2025-02-28] MEDS ORDERED: URSO300C2 PO (15:53)
[2025-02-28] MEDS: URSODIOL 300 MG CAP PO SCH (16:53)
[2025-02-28 17:00] VITALS: BP 128/84; PULSE 64; RESP 18; TEMP 98.4; O2SAT 98
[2025-02-28 18:40] VITALS: BP 129/89; PULSE 80; RESP 17; TEMP 97.8; O2SAT 97
[2025-02-28 20:00] VITALS: PULSE 77; RESP 18; O2SAT 98
[2025-03-01 05:00] VITALS: BP 130/86; PULSE 80; RESP 18; TEMP 99.2; O2SAT 96
[2025-03-01 08:34] VITALS: BP 124/73; PULSE 95; RESP 16; TEMP 98.3; O2SAT 97
[2025-03-01] MEDS ORDERED: THIA100T13 PO (10:32)
[2025-03-01] MEDS ORDERED: FOLI-119 PO (10:32)
--- NOTE | 2025-03-01 10:35 | DVHPN2 ---
Reviewed: Care Plan, H&P, Labs, Medications, Previous Orders, Radiology Changes from previous H/P or p: No Changes Eyes: No Pain, No Vision change, No Conjunctivae inflammation, No Eyelid inflammation, No Other, No Redness ENT: No Ear pain, No Ear discharge, No Nose pain, No Nose discharge, No Nose congestion, No Mouth pain, No Mouth swelling, No Throat pain, No Throat swelling, No Other Cardiovascular: No Chest Pain, No Palpitations, No Orthopnea, No Paroxysmal Noc. Dyspnea, No Edema, No Lt Headedness, No Other Respiratory: No Cough, No Dry, No Shortness of breath, No SOB with excertion, No Wheezing, No Hemoptysis, No Pleuritic Pain, No Sputum, No Other Gastrointestinal: Nausea; No Vomiting; Abdominal Pain (RUQ pain, bloating), D iarrhea; No Constipation, No Melena, No Hematochezia, No Other Genitourinary: No Dysuria, No Frequency, No Incontinence, No Hematuria, No Retention, No Other Musculoskeletal: No other, No neck pain, No shoulder pain, No arm pain, No back pain, No hand pain, No leg pain, No foot pain Skin: No Rash, No Lesions, No Jaundice, No Bruising, No Other Objective Vitals Vital Signs Date Time Temp Pulse Resp B/P (MAP) Pulse Ox O2 Delivery O2 Flow Rate FiO2 03/01/25 08:34 98.3 95 16 124/73 (90) 97 98.3 02/28/25 20:00 Room Air* 0 21 Intake/Output Intake and Output 03/01/25 07:00 Intake Total 1305 ml Balance 1305 ml Intake Oral 1305 ml # Voids 6 # Bowel Movements 4 Medications Current Medications Medications Dose Ordered Sig/William Route Start Time Stop Time Status Last Admin Dose Admin Acetaminophen/ Hydrocodone Bitart 1 tab Q4HP PRN PO 02/27/25 16:15 Ondansetron HCl 4 mg Q4HP PRN IV 02/27/25 16:15 Docusate Sodium 100 mg BIDPRN PRN PO 02/27/25 16:15 Acetaminophen 650 mg Q6HP PRN PO 02/27/25 16:15 Ceftriaxone Sodium 50 ml @ 100 mls/hr DAILY@09 IV 03/01/25 09:00 03/01/25 09:28 100 MLS/HR Metronidazole 100 ml @ 100 mls/hr Q8HR IV 02/28/25 14:00 03/01/25 05:07 100 MLS/HR Ursodiol 300 mg BID PO 02/28/25 16:00 03/01/25 09:34 300 MG Laboratory Results Laboratory Tests 02/28/25 03:52 Labs and/or images reviewed: Labs reviewed by me, Image(s) reviewed by me Assessment/Plan Assessment/Plan Acute abdominal pain Possible diverticulitis: Rocephin Flagyl Fatty liver Gallstones ruled out by negative MRCP Elevated liver enzymes and jaundice with bilirubin 11.7: Consult for GI Dr. Shantanu Saldaña treated Cholestatic jaundice possibly secondary to Augmentin which he has been using for one week, DC Augmentin; placed on Ursodiol 300 mg p.o. b.i.d. Hepatitis panel negative No CBD stone Time spent 45 minutes Cleared for discharge by GI Dr. Shantanu Saldaña Plan discussed with: Patient My Orders Orders - RACHANA FRIAS MD Procedure Category Date Status Time Ceftriaxone 1gm/50ml PHA 03/01/25 In Process (Rocephin) 09:00 Metronidazole PHA 02/28/25 In Process 500mg/100ml (Flagyl 14:00 * [facility] Director Of Security CONS 02/28/25 Transmitted 13:22 Drug Screen LAB 03/01/25 Logged 00:17 Date of Service: Mar 01, 2025 Billing Provider: RACHANA FRIAS MD Common Visit Codes: [id number] INP/OBS CARE(HIGH) RACHANA FRISA MD Mar 01, 2025 10:35
--- NOTE | 2025-03-01 10:39 | DVHDS2 ---
Discharge Summary Date of Admission Feb 27, 2025 at 16:04 Date of Discharge: Mar 01, 2025 Admitting Diagnosis Abdominal pain Wounds: none Labs/Diagnostic Data: Laboratory Results Test 02/28/25 13:47 02/28/25 03:52 02/27/25 10:59 Plasma/Serum Blood Alcohol < 3.0 mg/dL (<10) White Blood Count 9.1 10^3/uL (4.4-10.8) Red Blood Count 5.18 10^6/uL (4.5-5.90) Hemoglobin 15.7 g/dL (13.5-17.5) Hematocrit 45.7 % (41.0-53.0) Mean Corpuscular Volume 88.3 fL (80.0-100.0) Mean Corpuscular Hemoglobin 30.4 pg (28.0-32.0) Mean Corpuscular Hemoglobin Concent 34.4 g/dL (32.0-36.0) Red Cell Distribution Width 14.2 % (11.8-14.3) Platelet Count 218 10^3/uL (140-450) Mean Platelet Volume 9.8 fL (6.9-10.8) Neutrophils (%) (Auto) 73.3 % (37.0-80.0) Lymphocytes (%) (Auto) 13.2 % (10.0-50.0) Monocytes (%) (Auto) 7.5 % (0.0-12.0) Eosinophils (%) (Auto) 5.2 % (0.0-7.0) Basophils (%) (Auto) 0.8 % (0.0-2.0) Neutrophils # (Auto) 6.7 10 ^3/uL (1.6-8.6) Lymphocytes # (Auto) 1.2 10 ^3/uL (0.4-5.4) Monocytes # (Auto) 0.7 10 ^3/uL (0-1.3) Eosinophils # (Auto) 0.5 10 ^3/uL (0-0.8) Basophils # (Auto) 0.1 10 ^3/uL (0-0.2) Nucleated Red Blood Cells 0.2 % Sodium Level 136 mmol/L (136-145) Potassium Level 3.9 mmol/L (3.5-5.1) Chloride Level 100 mmol/L (98-107) Carbon Dioxide Level 24 mmol/L (20-31) Anion Gap 12 (5-15) Blood Urea Nitrogen 12 mg/dL (9-23) Creatinine 0.95 mg/dL (0.700-1.30) Glomerular Filtration Rate Calc 98 mL/min (>90) BUN/Creatinine Ratio 12.6 (10.0-20.0) Serum Glucose 167 mg/dL (74-106) Calcium Level 9.7 mg/dL (8.7-10.4) Total Bilirubin 10.6 mg/dL (0.2-1.0) Aspartate Amino Transferase (AST) 46 U/L (13-40) Alanine Aminotransferase (ALT) 172 U/L (7-40) Alkaline Phosphatase 229 U/L (46-116) Total Protein 7.4 g/dL (5.7-8.2) Albumin 4.5 g/dL (3.2-4.8) Hepatitis A IgM Antibody Negative Hepatitis A Antibody Total Positive (Negative) Hepatitis B Surface Antigen Negative (Negative) Hepatitis B Surface Antibody Negative (Negative) Hepatitis B Core Total Antibody Negative (Negative) Hepatitis B Core IgM Antibody Negative (Negative) Hepatitis C Antibody Negative (Negative) Prothrombin Time 10.6 sec (9.3-11.8) Prothrombin Time INR 1.00 (0.9-1.15) Activated Partial Thromboplast Time 27.9 SEC (24.5-34.5) Lipase 45 U/L (12-53) Other Laboratory Tests 02/28/25 03:52 Brief Hx & Hospital Course: Negative old male with a history of chronic alcohol abuse came in complaining of abdominal pain CT abdomen pelvis without contrast was negative except for possible mild diverticulitis. MRCP ruled out gallstones. No CBD stones. Patient has a hepatic steatosis secondary to chronic alcohol abuse bilirubin nurse high 11.[address] Shantanu Saldaña felt that it is possibly secondary to his recent use of Augmentin and advised to discontinue Augmentin hepatitis panel came negative cleared for discharge by GI Dr. Shantanu Saldaña. Prescription for ursodiol for cholestatic jaundice thiamine and folic acid for alcohol sent to the pharmacy and discharged. Consults/Reason for consult GI Dr. Shantanu Saldaña Operations or Procedures CT abdomen pelvis without contrast MRI of the abdomen Condition at Discharge: Fair Final Diagnosis/Problems List Acute abdominal pain Possible diverticulitis: Rocephin Flagyl Fatty liver Gallstones ruled out by negative MRCP Elevated liver enzymes and jaundice with bilirubin 11.7: Consult for GI Dr. Shantanu Saldaña treated Cholestatic jaundice possibly secondary to Augmentin which he has been using for one week, DC Augmentin; placed on Ursodiol 300 mg p.o. b.i.d. Hepatitis panel negative No CBD stone Discharge Disposition: Home Discharge Instruct/Medications Diet: Regular Activity: Light activity Follow Up/Referral: Stop drinking alcohol Use medications as prescribed Follow up with the GI Dr. Shantanu Saldaña in two weeks Do Not take Augmentin Medications: ursodiol Thiamine Folic acid Transmitted to pharmacy Scheduled Folic Acid (Folic Acid), 1 MG PO DAILY Hydroxyzine Hcl (Hydroxyzine Hcl), 1 TAB PO TID Prednisone (Prednisone), 60 MG PO DAILY Thiamine HCl (Thiamine Hydrochloride), 100 MG PO DAILY Ursodiol (Ursodiol), 300 MG PO BID 39 (Time taken for discharge summary 39 minutes) Discharge Statement: "Patient was advised to return to the ER or call 911 if any headaches, dizziness, shortness of breath, chest pain, abdominal pain, bleeding, fevers, or worsening of medical condition. Patient was counseled about treatment plan, medications, possible side effects, patientverbalized understanding. All questions were answered to the best of my ability. This discharge took greater then 30 minutes in planning, reviewing documentation, counseling the patient, and discussing with other team members." ASSESSMENT ASSESSMENT Hospital Course Improved Assessment Acute abdominal pain Possible diverticulitis: Rocephin Flagyl Fatty liver Gallstones ruled out by negative MRCP Elevated liver enzymes and jaundice with bilirubin 11.7: Consult for GI Dr. Shantanu Saldaña treated Cholestatic jaundice possibly secondary to Augmentin which he has been using for one week, DC Augmentin; placed on Ursodiol 300 mg p.o. b.i.d. Hepatitis panel negative No CBD stone Date of Service: Mar 01, 2025 Billing Provider: RACHANA FRIAS MD Common Visit Codes: 23204-KBG/OBS DISCH DAY >30min RACHANA FRIAS MD Mar 01, 2025 10:39
[2025-03-01 10:58] VITALS: BP 116/68; PULSE 65; RESP 18; TEMP 36.8; O2SAT 95
[2025-03-01 11:46] LABS: Albumin 4.4 g/dL (3.2-4.8); Anion Gap 11 (5-15); Blood Urea Nitrogen 12 mg/dL (9-23); Calcium 9.7 mg/dL (8.7-10.4); Carbon Dioxide 24 mmol/L (20-31); Chloride 101 mmol/L (98-107); Potassium 4.2 mmol/L (3.5-5.1); Sodium 136 mmol/L (136-145)
[2025-03-01 11:57] LABS: BUN/Creatinine Ratio 12.6 (10.0-20.0)
[2025-03-01 12:07] LABS: Alanine Aminotransferase 132 U/L (7-40); Alkaline Phosphatase 237 U/L (46-116); Bilirubin, Total 10.1 mg/dL (0.2-1.0); Glucose 132 mg/dL (74-106); Total Protein 7.4 g/dL (5.7-8.2)
--- NOTE | 2025-03-01 12:19 | DVHPN2 ---
Progress Note Date Seen: Mar 01, 2025 Resident Creating Document: RILEY BRUNNER RESIDENT Medical Necessity Reason Pt with a Central, PICC or Fol: No Subjective Review of Systems Darion Silva is a 50-year-old male with no significant past medical history who came to the hospital for abdominal pain. Patient states his symptoms began last 02/22/2025. He noticed that he was becoming yellow, nauseated, and itchy with a rash. He did come to the hospital and discharged home the same day. Wednesday02/24/2025 he noticed that his stool was becoming yellow and white. He also started having RUQ pain and bloating. He went to urgent care today due to his symptoms worsening and was told to come to the hospital. Past Surgical History: None Smoke: Quit (2 weeks ago) ALCOHOL: Tequila daily 02/28-Patient seen and examined. Reports taking amoxicillin clavulanate from 02/11 till 02/19, for 7 days. Also reports drinking Tequila small amounts almost every day. 03/01-patient feels better. Objective vital signs Vital Sign Date Time Temp Pulse Resp B/P (MAP) Pulse Ox O2 Delivery O2 Flow Rate FiO2 03/01/25 10:58 36.8 65 18 95 03/01/25 08:34 124/73 (90) 02/28/25 20:00 Room Air* 0 21 Total Intake and Output 02/28/25 02/28/25 03/01/25 15:00 23:00 07:00 Intake Total 755 ml 550 ml Balance 755 ml 550 ml Examination Patient lying in bed, in no acute distress General: Obese, afebrile, palor, scleral icterus, mucosae are moist Cardiovascular: Regular S1 and S2. No murmurs, gallops or rubs. No JVD elevation. No pedal edema Respiratory: Normal B/L air entry on room air. Clear lung sounds on auscultation Abdomen: Soft, nontender, nondistended, normoactive bowel sounds, no rebound tenderness, no organomegaly, no masses Genitourinary: Deferred MSK/skin: Mobilizes 4 limbs. Skin is dry and warm Neurological: No motor, no sensitive deficits, normal speech. Pupils are isocoric and reactive. Psych/Mental Status: A/Ox3 laboratory and microbiology Laboratory Tests 03/01/25 10:51 02/28/25 03:52 Test 03/01/25 10:51 Range/Units Serum Glucose 132 H 74-106 mg/dL Labs and/or images reviewed: Labs reviewed by me, Image(s) reviewed by me Problem List/Assessment/Plan Problem List/Assessment/Plan Cholestatic jaundice likely mixed from amoxicillin clavulanate and alcoholism Chronic alcoholism Transaminitis secondary to above Risk of alcohol withdrawal Hepatic steatosis Morbid obesity MRCP shows no evidence of cholelithiasis. Normal CBD. Hepatic steatosis CT abdomen shows Very minimal inflammatory changes surrounding a few diverticula at the ascending colon. Please correlate with any right-sided abdominal symptoms to exclude a mild acute right-sided diverticulitis. Plan: Dr. Saldaña: LFTs trending down. Discontinue amoxicillin/clavulanate. Counseled regarding drinking cessation. Stable to be discharged from GI side point. Continue ursodiol 300 mg p.o. b.i.d. daily and then 7 days on discharge. Hepatitis panel negative. Avoid Tylenol, NSAIDs Follow up with GI as outpatient within the next 2-4 weeks for elective EGD Plan discussed with patient in which all questions were answered Case discussed with Dr. Saldaña Plan discussed with: Patient RILEY BRUNNER RESIDENT Mar 01, 2025 12:19
== END 2025-03-01 11:52 | disposition home or self-care (01) | DRG 244 ==
LOC: ER 10:06 → OVERFLOW 16:04 → WEST WING 02-28 18:30
PROVIDERS: ADMIT Family Medicine; ATTEND Family Medicine
DX: K57.32 Diverticulitis of large intestine without perforation or abscess without bleeding (principal); E66.01 Morbid (severe) obesity due to excess calories; F10.20 Alcohol dependence, uncomplicated; K76.0 Fatty (change of) liver, not elsewhere classified; E80.6 Other disorders of bilirubin metabolism; Z68.35 Body mass index [BMI] 35.0-35.9, adult; K21.9 Gastro-esophageal reflux disease without esophagitis; R74.01 Elevation of levels of liver transaminase levels; Y90.9 Presence of alcohol in blood, level not specified
CPT/HCPCS: 36415; 74176; 74181; 76705; 80053; 80074; 80320; 82728; 83690; 85025; 85610; 85730; 86704; 86706; 86708; 86803; 87340; G0378; J3490